=== PATIENT | male | born 1960 | race Caucasian/White ===

== ENCOUNTER 2024-12-18 13:55 | Emergency (ER) | payer OTHER ==
[~2024-12-18] VITALS: Ht 172.7 cm; Wt 70.0 kg
[~2024-12-18 13:55] MED LIST: LISI40TA13 MT; MORP60TA6 PO; ONDA-239 PO; SENN-362 PO; TAMS-54 PO
[2024-12-18 14:04] VITALS: TEMP 37; O2SAT 96
[2024-12-18 16:38] VITALS: BP 155/81; PULSE 77; RESP 18; O2SAT 100
== END 2024-12-18 16:39 | disposition home or self-care (01) ==
LOC: ER 13:55
DX: T83.012A Breakdown (mechanical) of nephrostomy catheter, initial encounter (principal); I10 Essential (primary) hypertension; Z88.8 Allergy status to other drugs, medicaments and biological substances; Z79.899 Other long term (current) drug therapy
CPT/HCPCS: 99281

== ENCOUNTER 2024-12-20 21:50 | Emergency (ER) | payer OTHER ==
[~2024-12-20] VITALS: Ht 180.3 cm; Wt 79.8 kg
[2024-12-20 22:20] VITALS: O2SAT 99
[2024-12-20 23:48] LABS: HEMATOCRIT. 30.4 % (42.0-52.0); HEMOGLOBIN. 10.0 g/dL (14.0-18.0); MEAN PLATELET VOLUME 7.5 fl (7.4-10.4); PLATELET 213 x1000/uL (130-400); RED BLOOD CELL COUNT 3.37 mill/uL (4.7-6.1); RED CELL DISTRIBUTION WIDTH 15.3 % (11.6-14.6)
[2024-12-20 23:56] LABS: CREATININE 1.8 mg/dL (0.6-1.3); UREA NITROGEN BLOOD 33 mg/dL (9-23)
[2024-12-20 23:58] LABS: ASPARTATE AMINOTRANSFERASE 20 IU/L (<34); BILIRUBIN DIRECT 0.2 mg/dL (<=3.0); BILIRUBIN TOTAL 0.4 mg/dL (0.1-1.0); PROTEIN TOTAL 7.3 g/dL (6.0-8.3)
[2024-12-21] MEDS: SODIUM CHLORIDE 0.9% 1,000 ML IV ONE (00:05)
[2024-12-21] MEDS: MORPHINE SULFATE 4 MG/ML INJ (FOR IV/IM USE) IV ONE (00:05)
[2024-12-21] MEDS: ONDANSETRON HCL 4MG/2ML INJ IV ONE (00:05)
[2024-12-21 00:08] LABS: LYMPHOCYTES % MANUAL 9.0 % (20.0-50.0); MONOCYTES % MANUAL 7.0 % (2.0-8.0); NEUTROPHILS % MANUAL 84.0 % (45.0-75.0); PLATELET ESTIMATE NORMAL
[2024-12-21 00:16] LABS: CLARITY URINE TURBID (CLEAR); COLOR URINE YELLOW (YELLOW); GLUCOSE URINE NEGATIVE (NEGATIVE); KETONES URINE TRACE (NEGATIVE); LEUKOCYTE ESTERASE URINE 1+ (NEGATIVE); NITRITE URINE NEGATIVE (NEGATIVE); OCCULT BLOOD URINE 3+ (NEGATIVE); PH URINE 5.5 (4.5-8.0); PROTEIN URINE 2+ (NEGATIVE); SPECIFIC GRAVITY URINE 1.019 (1.005-1.030); UROBILINOGEN URINE 1.0 E.U./dL (0.2-1.0)
[2024-12-21 00:35] LABS: BACTERIA URINE 1+; SQUAMOUS EPITHELIAL CELL URINE NONE SEEN /lpf (RARE/1+)
[2024-12-21] MEDS ORDERED: DOCU100T MT (03:35)
[2024-12-21] MEDS ORDERED: NITR-87 MT (03:42)
[2024-12-21] MEDS ORDERED: LISI40TA13 MT (03:47)
[2024-12-21] MEDS: LACTULOSE 20G/30ML UDC PO ONE (03:58)
[2024-12-21 04:05] VITALS: BP 157/78; PULSE 70; RESP 12; TEMP 36.4; O2SAT 95
== END 2024-12-21 04:08 | disposition home or self-care (01) ==
LOC: ER 21:50
DX: K59.00 Constipation, unspecified (principal); I10 Essential (primary) hypertension; Z79.899 Other long term (current) drug therapy; Z85.038 Personal history of other malignant neoplasm of large intestine; Z92.21 Personal history of antineoplastic chemotherapy
CPT/HCPCS: 80076; 80048; 83690; 85025; 36415; 74176; 93005; 99285; 81003; 96361; 96374; 96375; J2405; J2270; J7030; Z7610; A4606

== ENCOUNTER 2025-01-05 09:00 | Inpatient (IN) | payer OTHER ==
[~2025-01-05] VITALS: Ht 180.3 cm; Wt 76.7 kg
[~2025-01-05 09:00] MED LIST changes: +DOCU100T MT; +NITR-87 MT
[2025-01-05 09:03] VITALS: O2SAT 97
[2025-01-05] MEDS ORDERED: MORPHINE SULFATE 4 MG/ML INJ (FOR IV/IM USE) IV ONE (10:15)
[2025-01-05 10:29] LABS: HEMATOCRIT. 29.7 % (42.0-52.0); HEMOGLOBIN. 9.6 g/dL (14.0-18.0); MEAN PLATELET VOLUME 7.7 fl (7.4-10.4); PLATELET 297 x1000/uL (130-400); RED BLOOD CELL COUNT 3.34 mill/uL (4.7-6.1); RED CELL DISTRIBUTION WIDTH 15.6 % (11.6-14.6)
[2025-01-05 10:39] LABS: CREATININE 1.2 mg/dL (0.6-1.3); UREA NITROGEN BLOOD 26 mg/dL (9-23)
[2025-01-05 10:41] LABS: INR 1.1
[2025-01-05] MEDS: MORPHINE SULFATE 10 MG/ML INJ (NOT FOR IM USE) IV NR (11:11)
[2025-01-05] MEDS: PIPERACILLIN/TAZO 3.375G/50ML 50 ML IV NR (11:11)
[2025-01-05] MEDS: CEFTRIAXONE 1GM/50ML 50 ML IV NR (11:11)
[2025-01-05] MEDS: SODIUM CHLORIDE 0.9% 1,000 ML IV ONE (11:11)
[2025-01-05 11:18] LABS: BAND% 4.0 % (1.0-6.0); LYMPHOCYTES % MANUAL 2.0 % (20.0-50.0); MONOCYTES % MANUAL 5.0 % (2.0-8.0); NEUTROPHILS % MANUAL 89.0 % (45.0-75.0); PLATELET ESTIMATE NORMAL
[2025-01-05] MEDS: SODIUM CHLORIDE 0.9% (SEPSIS BOLUS) IV ONE (11:39)
[2025-01-05 13:33] VITALS: BP 143/73; PULSE 77; RESP 19; TEMP 37.0296
[2025-01-05] MEDS ORDERED: OXYC20TA56 PO (14:04)
[2025-01-05] MEDS ORDERED: METH-819 MT (14:04)
[2025-01-05] MEDS: MORPHINE SULFATE 2 MG/ML INJ (NOT FOR IM USE) IV PRN (14:45)
[2025-01-05] MEDS ORDERED: HYDRALAZINE 20MG/ML VIAL IV PRN (14:45)
[2025-01-05] MEDS: ONDANSETRON HCL 4MG/2ML INJ IV PRN (14:45)
[2025-01-05] MEDS ORDERED: NALOXONE HCL 0.4MG/ML VIAL IV PRN (14:45)
[2025-01-05] MEDS: LISINOPRIL 40MG TABLET PO SCH (14:49)
[2025-01-05 16:30] VITALS: BP 125/70; PULSE 98; RESP 17; TEMP 36.6; O2SAT 98
[2025-01-05] MEDS: ENOXAPARIN 40MG/0.4ML SYR SUBCUT SCH (16:59)
[2025-01-05] MEDS: MORPHINE SULFATE 4 MG/ML INJ (FOR IV/IM USE) IV PRN (18:11)
[2025-01-05 20:00] VITALS: BP 148/78; PULSE 85; RESP 20; TEMP 37; O2SAT 98
[2025-01-05] MEDS: PIPERACILLIN/TAZO 3.375G/50ML 50 ML IV SCH (21:39)
[2025-01-05] MEDS: ACETAMINOPHEN 325MG TABLET PO PRN (22:16)
[2025-01-06] VITALS: BP 135/66; PULSE 80; RESP 20; TEMP 36.9; O2SAT 98
[2025-01-06 04:00] VITALS: BP 142/80; PULSE 99; RESP 20; TEMP 36.8; O2SAT 96
[2025-01-06 08:00] VITALS: BP 129/88; PULSE 101; RESP 18; TEMP 36.8; O2SAT 98
[2025-01-06] MEDS: POLYETHYLENE GLYCOL 3350 (17GM) 1 DOSE PACK PO SCH (10:15)
[2025-01-06 12:00] VITALS: BP 138/72; PULSE 106; RESP 18; TEMP 36.7; O2SAT 99
[2025-01-06] MEDS: METHADONE HCL 10MG TABLET PO SCH (12:00)
[2025-01-06] MEDS: METHADONE HCL 5MG TABLET PO SCH (12:00)
[2025-01-06 12:45] LABS: PLATELET 325 x1000/uL (130-400); RED BLOOD CELL COUNT 3.25 mill/uL (4.7-6.1); RED CELL DISTRIBUTION WIDTH 15.2 % (11.6-14.6)
[2025-01-06 13:07] LABS: CREATININE 1.1 mg/dL (0.6-1.3); UREA NITROGEN BLOOD 25 mg/dL (9-23)
[2025-01-06 16:00] VITALS: BP 118/74; PULSE 77; RESP 18; TEMP 36.6; O2SAT 99
[2025-01-06] MEDS: HYDROCODONE/ACETAMINOPHEN 10/325MG TABLET PO PRN (16:47)
[2025-01-06 20:00] VITALS: BP 124/69; PULSE 80; RESP 18; TEMP 36.8; O2SAT 97
[2025-01-06 20:25] LABS: CLARITY URINE CLEAR (CLEAR); COLOR URINE YELLOW (YELLOW); GLUCOSE URINE NEGATIVE (NEGATIVE); KETONES URINE TRACE (NEGATIVE); LEUKOCYTE ESTERASE URINE 2+ (NEGATIVE); NITRITE URINE NEGATIVE (NEGATIVE); OCCULT BLOOD URINE NEGATIVE (NEGATIVE); PH URINE 8.0 (4.5-8.0); PROTEIN URINE 1+ (NEGATIVE); SPECIFIC GRAVITY URINE 1.004 (1.005-1.030); UROBILINOGEN URINE 1.0 E.U./dL (0.2-1.0)
[2025-01-06 21:26] LABS: BACTERIA URINE TRACE; MUCUS URINE TRACE /lpf (NONE/TRACE); RBC URINE NONE SEEN /hpf (0-2); SQUAMOUS EPITHELIAL CELL URINE RARE /lpf (RARE/1+)
[2025-01-06] MEDS: MORPHINE SULFATE 15MG TABLET SR PO SCH (21:46)
[2025-01-07 00:04] VITALS: BP 118/80; PULSE 82; RESP 20; TEMP 36.7; O2SAT 98
[2025-01-07 04:00] VITALS: BP 135/76; PULSE 64; RESP 20; TEMP 36.7; O2SAT 98
[2025-01-07 08:00] VITALS: BP 146/76; PULSE 71; RESP 18; TEMP 36.2; O2SAT 97
[2025-01-07 09:18] LABS: PLATELET 259 x1000/uL (130-400); RED BLOOD CELL COUNT 2.81 mill/uL (4.7-6.1); RED CELL DISTRIBUTION WIDTH 15.2 % (11.6-14.6)
[2025-01-07 09:21] LABS: CREATININE 1.3 mg/dL (0.6-1.3); UREA NITROGEN BLOOD 36.0 mg/dL (9-23)
[2025-01-07 12:00] VITALS: BP 108/68; PULSE 67; RESP 18; TEMP 36.8; O2SAT 97
[2025-01-07 16:00] VITALS: BP 146/76; PULSE 71; RESP 18; TEMP 36.2; O2SAT 97
[2025-01-07 20:00] VITALS: BP 124/67; PULSE 72; RESP 21; TEMP 36.9; O2SAT 96
[2025-01-07] MEDS: MORPHINE SULFATE 15MG TABLET SR PO SCH (21:55)
[2025-01-08] VITALS: BP 118/62; PULSE 71; RESP 20; TEMP 36.3; O2SAT 96
[2025-01-08] MEDS: BISMUTH SUBSALICYLATE 262 MG/15 ML-120ML BOTTLE PO PRN (05:16)
[2025-01-08 08:06] LABS: CREATININE 1.4 mg/dL (0.6-1.3); UREA NITROGEN BLOOD 41.0 mg/dL (9-23)
[2025-01-08 08:14] VITALS: BP 130/74; PULSE 90; RESP 18; TEMP 36.4; O2SAT 97
[2025-01-08 08:47] LABS: PLATELET 264 x1000/uL (130-400); RED BLOOD CELL COUNT 2.82 mill/uL (4.7-6.1); RED CELL DISTRIBUTION WIDTH 15.1 % (11.6-14.6)
[2025-01-08] MEDS ORDERED: LEVO250T74 MT (10:08)
[2025-01-08 12:00] VITALS: BP 139/74; PULSE 71; RESP 19; TEMP 36.5; O2SAT 98
[2025-01-08 15:52] VITALS: BP 138/74; PULSE 72; RESP 18; TEMP 98.6
[2025-01-08 16:00] VITALS: BP 142/82; PULSE 72; RESP 18; TEMP 36; O2SAT 99
== END 2025-01-08 16:05 | disposition home or self-care (01) | DRG 690 ==
LOC: ER 09:00 → EDBEDREQTM 11:53 → EDBEDREQ 11:53 → ENRESERV 13:08 → 8WST 13:26
PROVIDERS: ADMIT Internal Medicine; ATTEND Internal Medicine
DX: N39.0 Urinary tract infection, site not specified (principal); F14.90 Cocaine use, unspecified, uncomplicated; D63.0 Anemia in neoplastic disease; F17.210 Nicotine dependence, cigarettes, uncomplicated; I10 Essential (primary) hypertension; Z85.048 Personal history of other malignant neoplasm of rectum, rectosigmoid junction, and anus; Z87.442 Personal history of urinary calculi; Z92.21 Personal history of antineoplastic chemotherapy; Z93.6 Other artificial openings of urinary tract status; Z79.899 Other long term (current) drug therapy
CPT/HCPCS: 36415; 71045; 80048; 81003; 83605; 84145; 85025; 85027; 87077; 87186; 93005; 93970; 99285; J0696; J1650; J2270; J2405; J2543; J7030